=== PATIENT | female | born 1975 | race Two or more races ===

== ENCOUNTER → 2024-09-22 | Outpatient (CLI) | payer MEDICAID, SELFPAY ==
--- NOTE | 2024-09-22 | XR_ITS ---
Examination: Bilateral wrists 6 views TECHNIQUE: AP oblique lateral each wrist total 6 views Exam date and time: September 22, 2024 1142 hours INDICATIONS: Bilateral wrist pain beginning 5 years ago. FINDINGS: Mild osteopenia No wrist fracture or dislocation Mild bilateral osteoarthritis first carpometacarpal joints IMPRESSION: Mild bilateral osteoarthritis first carpometacarpal joints
--- NOTE | 2024-09-22 | XR_ITS ---
Examination: Bilateral hands, 6 views. Technique: AP, Oblique, Lateral each hand total 6 views Date and time of exam: September 22, 2024 1134 hours INDICATIONS: Bilateral hand pain beginning 5 years ago. FINDINGS: Mild juxta-articular bone demineralization. No fracture or dislocation involving either hand Minimal bilateral osteoarthritis distal interphalangeal joints second through fifth digits and interphalangeal joints first digits No erosive arthritis No opaque foreign bodies IMPRESSION: Minimal osteoarthritis as above
== END | disposition home or self-care (01) ==
LOC: CDIM 11:10
PROVIDERS: PCP Nurse Practitioner Family
DX: M19.032 Primary osteoarthritis, left wrist (principal); M19.031 Primary osteoarthritis, right wrist; M19.042 Primary osteoarthritis, left hand; M19.041 Primary osteoarthritis, right hand
CPT/HCPCS: 73110; 73130

== ENCOUNTER 2024-11-13 09:30 | Outpatient (RCR) | payer MEDICAID, SELFPAY ==
--- NOTE | 2024-11-05 09:13 | PTNOTE_ITS ---
PT OP Initial Eval Patient Information Outpatient Physical Therapy Treatment Date: 11/05/24 Visit Reasons: Numbness of tingling in both hands Medical Diagnosis: R20.2 Treatment Dx #1: B wrist weakness Treatment Dx #2: B wrist pain Start of Care: 11/05/24 Date of Onset: 5 yrs ago Smoking Status Smoking Status: Never smoker Initial Assessment Subjective: Pt is 49 yr old greek speaking female who reports B wrist pain and weakness with gripping and grasping objects. She is working in agriculture with pain. PMH: HTN, DM, asthma, high cholesterol Imaging: Xrays of wrists in EMR Pt goal: not sure, the MD sent her but less pain Objective: Bhupinder military technology specialist strength R: 39, L: 47lbs Pinch: R: 5 lbs, L: 10 lbs Wrist AROM: Flexion: full Extension: full Tinel's: negative Assessment: Pt presents with decreased military technology specialist strength and subjective pain of carpal tunnels consistent with CTS. Carpal tunnel pain wasn't provoked today during evaluation likely due to recent injections. Pt requires skilled therapy to meet goals and has poor/fair rehab potential. Short Term and Jail Goals 1. Ind with HEP 2. Improved military technology specialist strength of R to at least 47 lbs 3. Pt will lift and carry 5 lbs in each hand without dropping Treatment Plan ? 1. Manual therapy ? 2. Therex ? 3. Modalities as indicated, moist heat, ice, estim Frequency and Duration: 1-2x a week for up to 12 visits Certification Dates: 11/05/24 to 02/01/25 Procedure Charges OP PT Eval Mod Complex 30 minutes: Yes
--- NOTE | 2024-11-13 17:51 | PT.ODAYNRPT ---
PT Outpatient Daily Note OP Daily Note Outpatient Physical Therapy Treatment Date: 11/13/24 Visit Reasons: Numbness of tingling in both hands Subjective: Same as eval Objective: See F/S for therex MHP: B wrists x5' Assessment: Low tissue irritability with therex Plan: Continue per POC Length of Time (minutes) of Treatment: 30 Minutes Procedure Charges Therapeutic Exercise 30 minutes: Yes
== END 2024-11-28 23:59 | disposition home or self-care (01) ==
LOC: CPTX 09:30
DX: M25.532 Pain in left wrist (principal); M25.531 Pain in right wrist; R53.1 Weakness
CPT/HCPCS: 97110; 97162

== ENCOUNTER → 2024-12-11 | Outpatient (CLI) | payer MEDICAID, SELFPAY ==
--- NOTE | 2024-12-11 | XR_ITS ---
Examination: Foot, right, 3 views Technique: AP, oblique, lateral views foot, 3 views Date and time of exam: December 11, 2024 1157 hours INDICATIONS: Injury to the foot 6 months ago with persistent pain. FINDINGS: No acute fracture No dislocation 10 mm plantar 6 mm posterior bony calcaneal spurs IMPRESSION: 10 mm plantar 6 mm posterior bony calcaneal spurs
--- NOTE | 2024-12-11 | XR_ITS ---
EXAMINATION: Ankle, right 3 views . Technique: Ankle AP, oblique, lateral 3 views Date and time of exam: December 11, 2024 1157 hours INDICATIONS: Right foot pain after injury 6 months ago FINDINGS: Mild osteopenia Mild osteoarthritis tibiotalar joint 12 mm plantar 8 mm posterior bony calcaneal spurs IMPRESSION: Mild osteoarthritis tibiotalar joint Large plantar posterior bony calcaneal spurs
--- NOTE | 2024-12-11 12:00 | XR_ITS ---
Examination: Right elbow 3 views Technique: Elbow AP, oblique, lateral 3 views Exam date and time: December 11, 2024 1150 hours INDICATIONS: Right elbow and pain beginning 5 years ago. FINDINGS: Mild elbow osteoarthritis No fracture or dislocation No elbow effusion IMPRESSION: Mild elbow osteoarthritis.
== END | disposition home or self-care (01) ==
PROVIDERS: PCP Nurse Practitioner Family; Referring Provider Internal Medicine Rheumatology; Visit Provider Internal Medicine Rheumatology
DX: M19.021 Primary osteoarthritis, right elbow (principal); M77.31 Calcaneal spur, right foot; M19.071 Primary osteoarthritis, right ankle and foot
CPT/HCPCS: 73080; 73610; 73630

== ENCOUNTER 2024-12-23 10:28 | Outpatient (RCR) | payer MEDICAID, SELFPAY ==
--- NOTE | 2024-12-23 10:43 | PT.ODAYNRPT ---
PT Outpatient Daily Note OP Daily Note Outpatient Physical Therapy Treatment Date: 12/23/24 Visit Reasons: bilateral wrist pain Subjective: Pt reports mild hand pain and discomfort today. Objective: Please see flow sheet for ther ex list. Assessment: Pt tolerated interventions with minimal discomfort. Plan: Continue with POC. Length of Time (minutes) of Treatment: 30 Minutes Procedure Charges Therapeutic Exercise 30 minutes: Yes
== END 2024-12-26 23:59 | disposition home or self-care (01) ==
LOC: CPTX 10:28
DX: M25.532 Pain in left wrist (principal); M25.531 Pain in right wrist; R53.1 Weakness; R20.2 Paresthesia of skin; I10 Essential (primary) hypertension; E11.9 Type 2 diabetes mellitus without complications
CPT/HCPCS: 97110